=== PATIENT | female | born 1995 | race Caucasian/White ===

== ENCOUNTER 2021-04-22 17:16 | Emergency (ER) | payer MEDICAID, SELFPAY ==
[2021-04-22 17:17] VITALS: BP 142/76; PULSE 91; RESP 16; TEMP 36.4; O2SAT 100; BMI 23.3
--- NOTE | 2021-04-22 18:27 | EDS_ITS ---
HPI <CHIRAG Courtney - Last Filed: 04/22/21 19:24> History of Present Illness Chief Complaint: Abscess Narrative Narrative: 26-year-old female with no past medical history presents with multiple abscesses. 1 month ago she developed a red swollen area on her left hip. It spontaneously drained pus and has improved since then. Then 1 week ago she developed a similar abscess in her left armpit but there has been no drainage. She denies recent fever, chills, nausea, or vomiting. Her PCP in [place] prescribed Bactrim but she only took 1 dose because it made her feel nauseated and intoxicated. She moved here a week ago and does not have a new PCP. She reports no prior history of having abscesses. She is not diabetic or immunocompromised. PFSH <CHIRAG Courtney - Last Filed: 04/22/21 19:24> PENDING SALE TO [facility] Medical History no medical history Home Medications cephalexin 500 mg PO Q6 7 Days #28 capsule 04/22/21 [Rx Last Taken Unknown] Allergy/AdvReac Type Severity Reaction Status Date / Time No Known Allergies Allergy Verified 04/22/21 17:18 Family History no significant family his Surgical History no surgical history Social History Smoking Status: Unknown if ever smoked ROS <CHIRAG Courtney - Last Filed: 04/22/21 19:24> ROS ED ROS Narrative Constitutional: Negative for fever, chills, malaise. Eyes: Negative for visual change. ENT: Negative for sore throat, ear pain, rhinorrhea. CVS: Negative for palpitations, chest pain, syncope. Respiratory: Negative for shortness of breath, cough, orthopnea. GI: Negative for abdominal pain, nausea, vomiting, diarrhea, constipation, melena, hematochezia. : Negative for dysuria, hematuria or frequency. Neuro: Negative for headache, motor/sensory dysfunction. Skin: Negative for rash, abscess, or wound. Musc: Negative for joint pain, swelling, trauma. Heme: Negative for easy bruising, bleeding, lymphadenopathy. EXAM <CHIRAG Courtney - Last Filed: 04/22/21 19:24> Physical Exam Narrative Exam Narrative: CONST: Patient sitting in no acute distress. EYES: Normal inspection. NECK: Normal inspection. RESP: No respiratory distress, CTAB. CVS: Regular rate and rhythm, no murmur, no gallop. Back: Normal inspection, no CVA tenderness. SKIN: Left axillary region has rope-like inflamed tissue with a small area of fluctuance. No surrounding lymphangitic streaking or lymphadenopathy. No active drainage. Circular area of erythema on left lateral hip. No fluctuance or induration. No drainage. EXTREMITIES: Normal appearance, no pedal edema. 2+ radial and DP pulses. NEURO: Oriented x4. PSYCH: Normal affect. Const Vital Signs: 04/22/21 17:17 Temperature 97.5 F L Temperature Source Temporal Pulse Rate 91 Respiratory Rate 16 Blood Pressure 142/76 H Blood Pressure Mean 98 Pulse Ox 100 Oxygen Delivery Method Room Air <Dr. Santos Ricardo, - Last Filed: 04/22/21 19:28> Physical Exam Const Vital Signs: 04/22/21 17:17 Temperature 97.5 F L Temperature Source Temporal Pulse Rate 91 Respiratory Rate 16 Blood Pressure 142/76 H Blood Pressure Mean 98 Pulse Ox 100 Oxygen Delivery Method Room Air MDM <CHIRAG Courtney - Last Filed: 04/22/21 19:24> [facility] Narrative Medical decision making narrative: Patient presents with abscesses in her left axillary region and left hip. She appears well nontoxic. Vital signs within normal limits. The area on her left hip is approximately 3 x 3 cm area of erythema that she reports already drained spontaneously. Here it is indurated. No fluctuance or indication for I&D today. She does have ropey erythematous tissue in the left axillary region and one area is fluctuant. It was anesthetized with 3 cc of 1% lidocaine with epinephrine. I used an 11 blade scalpel to make a 2 cm linear incision. I explore the abscess with curved hem ostats to break up loculations. There was a small amount of purulent material expressed. It is not large enough to place packing. Due to these recurrent abscesses in 2 areas she will be placed on Keflex. She previously could not tolerate Bactrim due to side effects. She was given a PCP referral and counseled on signs that would warrant return. She was discharged in stable condition. 1. Abscess, left axilla - I&D 2. Cellulitis from prior abscess, left hip <Dr. Santos Ricardo DO - Last Filed: 04/22/21 19:28> [facility] Narrative Medical decision making narrative: Patient was seen with me. I did a [id number] examination with the patient. I agree with the history and physical examination. I was present during all fuchs points of the procedure. Patient presents with abscess to her left axilla that has been getting worse over the past couple days. Patient states she had an abscess on her left hip a few days ago that started draining spontaneously. Patient then noted some swelling in her left axilla. Patient denies any fevers or chills. Patient denies any drainage from the axilla. Patient states her pain is worse with any movement. Vital signs are stable. Patient is afebrile. Patient is in no acute distress. Skin is warm and dry. There is a abscess in the left axilla. There is some mild fluctuance. There is some mild erythema. There is no active drainage. There is also some tenderness and erythema over the lateral aspect of the left hip area. There is no induration. There is no warmth. There is no fluctuance over this area. The left axilla was cleaned and anesthetized 1% lidocaine locally. The area was opened and drained. Wound was left open. Patient was given a prescription for Keflex. Patient was instructed to follow-up with her primary care physician in 5 to 7 days. Patient understood and was agreeable with the plan. All questions were answered. Discharge Plan Triage Chief Complaint: Abscess Dx/Rx/DC Orders Clinical Impression: Abscess of axilla, left, Abscess of hip, left Instructions: ED Abscess Incision And Drainage Prescriptions: New cephalexin 500 mg capsule 500 mg PO Q6 7 Days Qty: 28 RF: 0 Primary Care Provider: Care Physician,No Primary Referrals: Dona Worley [NON-STAFF] - Care Physician,No Primary [Primary Care Provider] - Activity Restrictions/Additional Instructions: I prescribed an antibiotic called Keflex to take for the next week. You can gently clean the area with soap and water. If you develop new or worsening symptoms such as swelling, spreading redness, fever please come back to the ER. I also provided a primary care clinic you can follow-up with. Disposition Disposition: Home, Self Care
[2021-04-22] MEDS: Lidocaine 1% /Epi 1:100 (50ml) 50 ML VIAL INFILT (19:31)
[2021-04-22] MEDS: Cephalexin 250 MG Capsule 500 MG PO (19:31)
== END 2021-04-22 19:44 | disposition home or self-care (01) ==
PROVIDERS: Emergency Provider Emergency Medicine; Visit Provider Emergency Medicine
DX: L02.412 Cutaneous abscess of left axilla (principal); L02.416 Cutaneous abscess of left lower limb; L03.116 Cellulitis of left lower limb
CPT/HCPCS: 10060; 99284